=== PATIENT | female | born 1955 | race Caucasian/White ===

== ENCOUNTER 2018-07-03 17:36 | Emergency (ER) | payer MEDICARE, OTHER ==
[2018-07-03] MEDS ORDERED: SODIUM CHLORIDE 0.9% 1,000 ML IV STA (18:12)
--- NOTE | 2018-07-03 18:15 | ED ---
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 Patient does live in a care facility. Patient's long-time roommate was admitted to the hospital over a month ago. Since that time patient has not been eating well. Patient has been refusing food and drink and when she is tolerating oral intake is less than normal. Patient has been refusing medications. Patient recently was diagnosed with urinary tract infection. Patient did go back to the hospital and received IV antibiotics for this. Patient is nonverbal and does not provide any additional history. - Related Data Home Medications Medication Instructions Recorded Confirmed Alendronate Sodium [Fosamax] 35 mg PO RUIZ 07/03/18 07/03/18 Calcium Carbonate/Vitamin D3 1 tab PO BID@0700,209907/03/18 07/03/18 [Calcium 600-Vit D3 200 Tablet] Cephalexin [Keflex Susp] 500 mg PO BID@0700,209907/03/18 07/03/18 Cholecalciferol [Vitamin D3] 1,000 unit PO SUTUTHSA 07/03/18 07/03/18 Desmopressin [Ddavp] 0.2 mg PO BID@0700,2100 07/03/18 07/03/18 Furosemide [Lasix] 20 mg PO QAM 07/03/18 07/03/18 Glimepiride [Amaryl] 1 mg PO DAILY 07/03/18 07/03/18 LORazepam [Ativan] 1 mg PO DAILY 07/03/18 07/03/18 Levothyroxine Sodium [Synthroid] 50 mcg PO DAILY 07/03/18 07/03/18 Melatonin 5 mg PO HS 07/03/18 07/03/18 Potassium Chloride [Klor-Con 10] 10 meq PO DAILY 07/03/18 07/03/18 Ranitidine HCl [Zantac] 150 mg PO HS 07/03/18 07/03/18 clonazePAM 0.5 mg PO HS 07/03/18 07/03/18 metFORMIN HCL ER [Glucophage Xr] 500 mg PO HS@2100 07/03/18 07/03/18 Allergies Allergy/AdvReac Type Severity Reaction Status Date / Time No Known Allergies Allergy Verified 07/03/18 18:26 Review of Systems ROS Statement: Those systems with pertinent positive or pertinent negative responses have been documented in the HPI. ROS Other: All systems not noted in ROS Statement are negative. Limitations: ROS unobtainable due to patients medical condition Respiratory: Denies: dyspnea Gastrointestinal: Denies: vomiting Skin: Denies: rash Past Medical History Past Medical History: Diabetes Mellitus, Seizure Disorder History of Any Multi-Drug Resistant Organisms: None Reported Past Surgical History: No Surgical Hx Reported Past Psychological History: Anxiety Smoking Status: Never smoker Past Alcohol Use History: None Reported Past Drug Use History: None Reported General Exam Limitations: altered mental status, physical limitation General appearance: alert, in no apparent distress Head exam: Present: atraumatic Eye exam: Present: normal appearance, PERRL, EOMI ENT exam: Present: normal oropharynx Neck exam: Present: normal inspection. Absent: meningismus Respiratory exam: Present: normal lung sounds bilaterally Cardiovascular Exam: Present: regular rate, normal rhythm GI/Abdominal exam: Present: soft. Absent: tenderness Neurological exam: Present: alert, other (Limited exam. Follows some simple commands. No gross deficits on exam and nonverbal.) Expanded Neurological exam: Present: protecting the airway Speech: Present: total aphasia Motor strength exam: RUE: 5, LUE: 5, RLE: 5, LLE: 5 Psychiatric exam: Present: flat affect Skin exam: Present: normal color Course Vital Signs 07/03/18 07/03/18 07/03/18 18:08 19:05 21:22 Temperature 97.1 F L 98.2 F Pulse Rate 96 75 66 Respiratory 18 18 18 Rate Blood Pressure 140/85 163/88 172/81 O2 Sat by Pulse 96 96 97 Oximetry EKG Findings - EKG Comments: EKG Findings:: Normal sinus rhythm 77. IL 128. QRS 76. QT 358. QTC 45. Normal axis. Normal QRS. No acute ST change. Medical Decision Making - Medical Decision Making Patient was seen by mental health services who does plan on admission. Positive clinical certificate completed. - Lab Data Result diagrams: 07/03/18 18:34 07/03/18 18:34 Lab Results 10/12/1607/03/18 07/03/18 Range/Units 18:34 18:34 18:34 WBC 9.3 (3.8-10.6) k/uL RBC 4.19 (3.80-5.40) m/uL Hgb 12.9 (11.4-16.0) gm/dL Hct 41.7 (34.0-46.0) % MCV 99.6 (80.0-100.0) fL MCH 30.9 (25.0-35.0) pg MCHC 31.0 (31.0-37.0) g/dL RDW 13.5 (11.5-15.5) % Plt Count 222 (150-450) k/uL Neutrophils % 70 % Lymphocytes % 19 % Monocytes % 8 % Eosinophils % 0 % Basophils % 0 % Neutrophils # 6.5 (1.3-7.7) k/uL Lymphocytes # 1.8 (1.0-4.8) k/uL Monocytes # 0.7 (0-1.0) k/uL Eosinophils # 0.0 (0-0.7) k/uL Basophils # 0.0 (0-0.2) k/uL PT (9.0-12.0) sec INR (<1.2) APTT (22.0-30.0) sec Sodium 141 (137-145) mmol/L Potassium 3.8 (3.5-5.1) mmol/L Chloride 110 H (98-107) mmol/L Carbon Dioxide 23 (22-30) mmol/L Anion Gap 8 mmol/L BUN 19 H (7-17) mg/dL Creatinine 0.78 (0.52-1.04) mg/dL Est GFR (CKD-EPI)AfAm >90 (>60 ml/min/1.73 sqM) Est GFR (CKD-EPI)NonAf 82 (>60 ml/min/1.73 sqM) Glucose 164 H (74-99) mg/dL Calcium 9.1 (8.4-10.2) mg/dL Magnesium 1.9 (1.6-2.3) mg/dL Total Bilirubin 0.7 (0.2-1.3) mg/dL AST 17 (14-36) U/L ALT 19 (9-52) U/L Alkaline Phosphatase 72 (38-126) U/L Total Creatine Kinase 57 (30-135) U/L CK-MB (CK-2) 2.3 (0.0-2.4) ng/mL CK-MB (CK-2) Rel Index 4.0 Troponin I <0.012 (0.000-0.034) ng/mL Total Protein 6.6 (6.3-8.2) g/dL Albumin 3.3 L (3.5-5.0) g/dL TSH 1.970 (0.465-4.680) mIU/L Free T4 0.97 (0.78-2.19) ng/dL Free T3 pg/mL 1.9 L (2.8-5.3) pg/ml Urine Color Urine Appearance (Clear) Urine pH (5.0-8.0) Ur Specific [place] (1.001-1.035) Urine Protein (Negative) Urine Glucose (UA) (Negative) Urine Ketones (Negative) Urine Blood (Negative) Urine Nitrite (Negative) Urine Bilirubin (Negative) Urine Urobilinogen (<2.0) mg/dL Ur Leukocyte Esterase (Negative) Urine RBC (0-5) /hpf Urine WBC (0-5) /hpf Ur Squamous Epith Cells (0-4) /hpf Urine Bacteria (None) /hpf Urine Mucus (None) /hpf 07/03/18 07/03/18 Range/Units 18:34 19:03 WBC (3.8-10.6) k/uL RBC (3.80-5.40) m/uL Hgb (11.4-16.0) gm/dL Hct (34.0-46.0) % MCV (80.0-100.0) fL MCH (25.0-35.0) pg MCHC (31.0-37.0) g/dL RDW (11.5-15.5) % Plt Count (150-450) k/uL Neutrophils % % Lymphocytes % % Monocytes % % Eosinophils % % Basophils % % Neutrophils # (1.3-7.7) k/uL Lymphocytes # (1.0-4.8) k/uL Monocytes # (0-1.0) k/uL Eosinophils # (0-0.7) k/uL Basophils # (0-0.2) k/uL PT 11.2 (9.0-12.0) sec INR 1.2 H (<1.2) APTT 22.5 (22.0-30.0) sec Sodium (137-145) mmol/L Potassium (3.5-5.1) mmol/L Chloride (98-107) mmol/L Carbon Dioxide (22-30) mmol/L Anion Gap mmol/L BUN (7-17) mg/dL Creatinine (0.52-1.04) mg/dL Est GFR (CKD-EPI)AfAm (>60 ml/min/1.73 sqM) Est GFR (CKD-EPI)NonAf (>60 ml/min/1.73 sqM) Glucose (74-99) mg/dL Calcium (8.4-10.2) mg/dL Magnesium (1.6-2.3) mg/dL Total Bilirubin (0.2-1.3) mg/dL AST (14-36) U/L ALT (9-52) U/L Alkaline Phosphatase (38-126) U/L Total Creatine Kinase (30-135) U/L CK-MB (CK-2) (0.0-2.4) ng/mL CK-MB (CK-2) Rel Index Troponin I (0.000-0.034) ng/mL Total Protein (6.3-8.2) g/dL Albumin (3.5-5.0) g/dL TSH (0.465-4.680) mIU/L Free T4 (0.78-2.19) ng/dL Free T3 pg/mL (2.8-5.3) pg/ml Urine Color Yellow Urine Appearance Clear (Clear) Urine pH 6.0 (5.0-8.0) Ur Specific [place] 1.020 (1.001-1.035) Urine Protein Trace H (Negative) Urine Glucose (UA) 4+ H (Negative) Urine Ketones Trace H (Negative) Urine Blood Moderate H (Negative) Urine Nitrite Negative (Negative) Urine Bilirubin Negative (Negative) Urine Urobilinogen 6.0 (<2.0) mg/dL Ur Leukocyte Esterase Trace H (Negative) Urine RBC 9 H (0-5) /hpf Urine WBC 3 (0-5) /hpf Ur Squamous Epith Cells 3 (0-4) /hpf Urine Bacteria Rare H (None) /hpf Urine Mucus Occasional H (None) /hpf - Radiology Data Radiology results: image reviewed (Chest x-ray shows no acute process) Disposition Clinical Impression: Depression Disposition: TRANSFER TO PSYCH HOSP/UNIT Is patient prescribed a controlled substance at d/c from ED?: No Referrals: Martin Mendosa MD [Primary Care Provider] - 1-2 days Decision Time: 21:30
[2018-07-03 18:46] LABS: Basophils % (A) 0 %; Eosinophils % (A) 0 %; HCT 41.7 % (34.0-46.0); HGB 12.9 gm/dL (11.4-16.0); Lymphocytes # (A) 1.8 k/uL (1.0-4.8); Lymphocytes % (A) 19 %; MCH 30.9 pg (25.0-35.0); MCV 99.6 fL (80.0-100.0); Mean Platelet Volume 7.2; Monocytes # (A) 0.7 k/uL (0-1.0); Monocytes % (A) 8 %; Neutrophils # (A) 6.5 k/uL (1.3-7.7); Neutrophils % (A) 70 %; Platelet Count 222 k/uL (150-450); RBC 4.19 m/uL (3.80-5.40); RDW 13.5 % (11.5-15.5); WBC 9.3 k/uL (3.8-10.6)
[2018-07-03 19:01] LABS: INR 1.2 (<1.2); Partial Thromboplastin Time 22.5 sec (22.0-30.0); Prothrombin Time 11.2 sec (9.0-12.0)
[2018-07-03 19:05] LABS: Creatine Kinase 57 U/L (30-135)
[2018-07-03 19:06] LABS: ALT 19 U/L (9-52); AST 17 U/L (14-36); Albumin 3.3 g/dL (3.5-5.0); Alkaline Phosphatase 72 U/L (38-126); Anion Gap 8 mmol/L; Blood Urea Nitrogen 19 mg/dL (7-17); Calcium 9.1 mg/dL (8.4-10.2); Carbon Dioxide 23 mmol/L (22-30); Chloride 110 mmol/L (98-107); Glucose 164 mg/dL (74-99); Magnesium 1.9 mg/dL (1.6-2.3); Potassium 3.8 mmol/L (3.5-5.1); Sodium 141 mmol/L (137-145); Total Bilirubin 0.7 mg/dL (0.2-1.3); Total Protein 6.6 g/dL (6.3-8.2)
--- NOTE | 2018-07-03 19:14 | XR ---
EXAMINATION TYPE: XR chest 2V DATE OF EXAM: 07/03/2018 COMPARISON: NONE HISTORY: Weakness TECHNIQUE: Frontal and lateral views of the chest are obtained. FINDINGS: There is no heart failure nor confluent pneumonic infiltrate. There is poor separation. Th ere are chest leads. Heart size is fairly normal. IMPRESSION: Poor inspiration. No pulmonary consolidation or heart failure.
[2018-07-03 19:16] LABS: Appearance,Urine Clear (Clear); Bacteria,Urine Rare /hpf; Bilirubin,Urine Negative (Negative); Blood,Urine Moderate (Negative); Color,Urine Yellow; Glucose,Urine (UA) 4+ (Negative); Ketones,Urine Trace (Negative); Leukocyte Esterase,Urine Trace (Negative); Mucus,Urine Occasional /hpf; Nitrite,Urine Negative (Negative); Protein,Urine Trace (Negative); RBC,Urine 9 /hpf (0-5); Squamous Epithelial Cell,Urine 3 /hpf (0-4); WBC,Urine 3 /hpf (0-5)
[2018-07-03 19:18] LABS: Creatine Kinase MB 2.3 ng/mL (0.0-2.4); Troponin I <0.012 ng/mL (0.000-0.034)
[2018-07-03 19:24] LABS: T4, Free (Free Thyroxine) 0.97 ng/dL (0.78-2.19)
[2018-07-03] MEDS ORDERED: LORazepam 2 MG/ML INJ IV STA (22:53)
[2018-07-03 23:15] LABS: Glucose,Whole Blood 116 mg/dL (75-99)
[2018-07-04] MEDS ORDERED: VALPROATE SODIUM 250 MG in SODIUM CHLORIDE 0.9% 50 ML IVPB STA (00:10)
[2018-07-04] MEDS ORDERED: FUROSEMIDE 10 MG/ML 4 ML VIAL IV STA (00:40)
[2018-07-04 03:50] VITALS: RESP 16
[2018-07-04 07:02] VITALS: TEMP 98.5
[2018-07-04 11:23] VITALS: BP 157/70; PULSE 63
== END 2018-07-04 14:03 ==
LOC: EC 17:36 → EEVIPCON 17:36 → EC 07-04 14:03
DX: F32.9 Major depressive disorder, single episode, unspecified (principal); R53.1 Weakness; R62.7 Adult failure to thrive; R47.01 Aphasia; E11.9 Type 2 diabetes mellitus without complications; G40.909 Epilepsy, unspecified, not intractable, without status epilepticus; F41.9 Anxiety disorder, unspecified; Z79.84 Long term (current) use of oral hypoglycemic drugs; Z79.899 Other long term (current) drug therapy
CPT/HCPCS: 99285 ×2; 96365 ×2; 96366 ×11; 96375 ×4; 96361 ×4; 36415; 93005; 84439; 80164; 84481; 80053; 82550; 82553; 83735; 84443; 84484; 85025; 85610; 85730; 81001; 87086; 71046; J2060; J1940